=== PATIENT | male | born 1990 | race Caucasian/White ===

== ENCOUNTER 2021-07-10 21:40 | Emergency (ER) | payer SELFPAY ==
[2021-07-10 21:55] VITALS: BP 134/80; PULSE 70; RESP 18; TEMP 36.9; O2SAT 100
--- NOTE | 2021-07-10 22:34 | PC.NURSE ---
Pt to desk wanting to leave. Pt encouraged to stay or get his eye checked out afterwards. Pt A&Ox4 and still wants to leave.
== END 2021-07-11 02:39 | disposition left against medical advice (07) ==
LOC: ANHED 22:46
PROVIDERS: PCP Internal Medicine
DX: Z53.21 Procedure and treatment not carried out due to patient leaving prior to being seen by health care provider (principal)
CPT/HCPCS: 99199

== ENCOUNTER 2022-02-20 00:25 | Day surgery (SDC) | payer OTHER, SELFPAY ==
[2022-02-09 14:24] VITALS: BMI 27.4
[2022-02-20 11:09] VITALS: BP 117/75; PULSE 92; RESP 18; TEMP 36.8; O2SAT 100
--- NOTE | 2022-02-20 11:15 | WPDANESEPPF ---
Anes - Initial Pre Proc Eval Procedure: Operation Date: 02/20/22 13:00 Proposed Procedures p Esophagogastroduodenoscopy - Walter Skelton MD Date/Time: 02/20/22 11:15 Surgeon: Walter Skelton MD Pre Op Diagnosis: dysphagia Patient Data Age: 31 Gender: M Height: 1.68 m Weight: 76.5 kg Last Vital Signs Temp 36.8 C 02/20/22 11:09 Pulse 92 02/20/22 11:09 Resp 18 02/20/22 11:09 BP 117/75 02/20/22 11:09 Pulse Ox 100 02/20/22 11:09 O2 Del Method Room Air 02/20/22 11:09 Allergies Allergy/AdvReac Type Severity Reaction Status Date / Time No Known Allergies Allergy Mild Verified 02/20/22 11:06 Home Medications Medication Instructions Recorded Confirmed Type pantoprazole 40 mg tablet,delayed 40 mg PO PRN 01/07/22 02/09/22 History release Patient hx anesthesia problems: none Family hx anesthesia problems: none Results Review: All pre-operative results and documents have been reviewed as part of the pre-operative evaluation. [facility] Past Medical History Medical History GERD (gastroesophageal reflux disease) Social History Social History Smoking status: Never smoker Alcohol intake: current Alcohol use details: occasional Substance use: never Substance use type: does not use Living arrangements: with family Gender identity (if verbalized by the patient): Male Spiritual care concerns: No Anes - Eval Final PreProcedure Day of Procedure 02/20/22 11:15 Patient weight: overweight Heart: regular rate and rhythm Lungs: clear to auscultation Airway: Mallampati scale class II Neurological: alert and oriented Last oral intake: >/= 8 hours ASA classification: II Emergent: no Anesthetic plan: proceed Anesthesia type and monitoring: general GIVS and standard monitoring Results Review: All pre-operative results and documents have been reviewed as part of the pre-operative evaluation. Informed Consent: The patient's anesthetic plan and its attendant risks and benefits were discussed with the patient/family/POA. Questions were solicited and answers provided to the satisfaction of the patient/family/POA.
[2022-02-20] MEDS: LACTATED RINGERS 1,000 ML 150 ML IV CONT (11:16)
--- NOTE | 2022-02-20 11:58 | PM.IMHP ---
H&P: HPI History of Present Illness Date/Time: 02/20/22 11:58 Chief Complaint: Dysphagia. Narrative: This is a 31-year-old white male patient presents for EGD. Patient has complaints of difficulty swallowing food. Food will catch in the mid substernal portion the chest. Typical [place] this happens with larger pieces of food. Patient denies any heartburn. Currently maintained on pantoprazole 40mg p.o. daily. Patient has a history of a food impaction several years ago esophageal stricture identified dilated at that time patient has been on PPI therapy since that time patient presents today because of increasing difficulty with food over the last several months. Review of Systems Review of Systems: Review of systems noncontributory. [facility] Past Medical History Medical History GERD (gastroesophageal reflux disease) Social History Social History Smoking status: Never smoker Alcohol intake: current Alcohol use details: occasional Substance use: never Substance use type: does not use Living arrangements: with family Gender identity (if verbalized by the patient): Male Spiritual care concerns: No Meds Home Medications and Allergies Home Medications Medication Instructions Recorded Confirmed Type pantoprazole 40 mg tablet,delayed 40 mg PO PRN 01/07/22 02/09/22 History release Allergies Allergy/AdvReac Type Severity Reaction Status Date / Time No Known Allergies Allergy Mild Verified 02/20/22 11:06 Vital Signs Vital Signs - 24 hr 02/20/22 11:09 Temperature 98.2 F Pulse Rate 92 Respiratory Rate 18 Blood Pressure 117/75 Pulse Oximetry 100 Oxygen Delivery Room Air Exam Narrative: Physical exam reveals patient to be alert. Vital signs stable. HEENT exam is unremarkable. Patient is anicteric. Lungs are clear to auscultation and percussion. Heart is without murmur or extra sounds. Abdominal exam bowel sounds are present soft nontender with no organomegaly. Digital external rectal exam is normal. Assessment and Plan Assessment and plan (1) Dysphagia: Code(s): R13.10 - Dysphagia, unspecified Status: Acute Assessment and Plan: Patient has recurrent dysphagia. 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 Previously felt to be on the basis of acid reflux disease. Plan to continue pantoprazole 40mg p.o. daily. EGD will be performed this time. Further recommendations will be given after endoscopy.
[2022-02-20 12:18] VITALS: BP 91/52; PULSE 74; RESP 18; O2SAT 100
[2022-02-20 12:28] VITALS: BP 95/51; PULSE 77; RESP 19; O2SAT 100
[2022-02-20 12:38] VITALS: BP 100/54; PULSE 71; RESP 22; O2SAT 100
== END 2022-02-20 12:46 | disposition home or self-care (01) ==
PROVIDERS: PCP Internal Medicine; Visit Provider Internal Medicine Gastroenterology
PROC: 0DJ08ZZ Inspection of Upper Intestinal Tract, Via Natural or Artificial Opening Endoscopic (ICD-10-PCS; CPT 43235; principal; 2022-02-20 13:00)
DX: R13.19 Other dysphagia (principal); K22.2 Esophageal obstruction; K21.9 Gastro-esophageal reflux disease without esophagitis
CPT/HCPCS: 43450; 43235; J2704; J7120